=== PATIENT | female | born 1955 | race Caucasian/White ===

== ENCOUNTER 2017-04-14 18:07 | Emergency (ER) | payer OTHER ==
[~2017-04-14] VITALS: Ht 165.1 cm; Wt 80.0 kg
[~2017-04-14 18:07] MED LIST: FLUO10CA5 PO; NAPR550T3 PO
[2017-04-14 18:08] VITALS: BP 126/62; PULSE 80; RESP 20; TEMP 98.5; O2SAT 98
[2017-04-14] MEDS ORDERED: FLUO10TA PO (18:36)
[2017-04-14 19:20] LABS: BLOOD, URINE SMALL (NEG); COMMENT (UR) CULTURE INDICATED; CULTURE IF INDICATED CULTURE INDICATED; GLUCOSE,URINE NEG (NEG); HYALINE CAST, URINE 2 /lpf (RARE); KETONE, URINE NEG (NEG); MUCUS URINE MOD /lpf (OCC); NITRITE,URINE NEG (NEG); PH, URINE 5.5 (5.0-8.5); SQUAMOUS EPITHELIAL CELL URINE 3 /hpf (0-5); URINE COLOR YELLOW (YELLW/STRAW)
[2017-04-14] MEDS ORDERED: AZITHROMYCIN PWD FOR SUSP 1 GM PACKET PO ONE ×2 (19:30)
[2017-04-14] MEDS ORDERED: DOXY100C PO (19:31)
--- NOTE | 2017-04-14 19:38 | PD ---
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 SHe has had this for 3 days. Pain in pelvic area. Has been putting monistat with no relief. No chest pain. No fevers. Recent sexual intercourse with boyfriend. Pain is 8/10. No previous STD. No back pain. Urinary or BM issues. PFSH Past Medical History Autoimmune Disease: No Anxiety: Yes Depression: Yes Cancer: No Cardiovascular Problems: No Diminished Hearing: No Endocrine: No Genitourinary: No Immune Disorder: No Musculoskeletal: No Neurologic: No Psychiatric: Yes (DEPRESSED FOR 1 YR) Reproductive: No Respiratory: No Immunizations Current: Yes ?: Not Menopausal: Yes : 1 Para: 1 Past Surgical History Abdominal Surgery: No Cardiac Surgery: No Ear Surgery: No Endocrine Surgery: No Eye Surgery: No Genitourinary Surgery: No Gynecologic Surgery: Yes (HYSTERCTOMY IN THE 'S) Hysterectomy: Yes Oral Surgery: No Thoracic Surgery: No Social History Alcohol Use: No Tobacco Use: No Substance Use: Yes (marijuana) Allergies-Medications (Allergen,Severity, Reaction): Coded Allergies: Penicillin (Verified Allergy, Mild, Anaphylaxis, 09/15/16) Reported Meds & Prescriptions Reported Meds & Active Scripts Active Doxycycline Hyclate 100 Mg Cap 100 Mg PO BID 10 Days Reported Fluoxetine (Fluoxetine HCl) 10 Mg Tab 10 Mg PO DAILY Review of Systems Except as stated in HPI: all other systems reviewed are Neg Physical Exam Narrative GENERAL: SKIN: Warm and dry. HEAD: Atraumatic. Normocephalic. EYES: Pupils equal and round. No scleral icterus. No injection or drainage. ENT: No nasal bleeding or discharge. Mucous membranes pink and moist. Tongue is midline. No uvula deviation. NECK: Trachea midline. No JVD. CARDIOVASCULAR: Regular rate and rhythm. No murmurs, S3, S4. RESPIRATORY: No accessory muscle use. Clear to auscultation. Breath sounds equal bilaterally. GASTROINTESTINAL: Abdomen soft, non-tender, nondistended. Hepatic and splenic margins not palpable. Pelvic exam: seen with female nurse present, has green discharge. No cervical motion tenderness. No lymphadenopathy. No masses. MUSCULOSKELETAL: Extremities without clubbing, cyanosis, or edema. No obvious deformities. NEUROLOGICAL: Awake and alert. No obvious cranial nerve deficits. Motor grossly within normal limits. Five out of 5 muscle strength in the arms and legs. Normal speech. PSYCHIATRIC: Appropriate mood and affect; insight and judgment normal. Data Data Last Documented VS Vital Signs Date Time Temp Pulse Resp B/P Pulse Ox O2 Delivery O2 Flow Rate FiO2 04/14/17 18:08 98.5 80 20 126/62 98 Room Air Orders Gc And Chlamydia Pcr (04/14/17 18:38) Wet Prep Profile (04/14/17 18:38) Urinalysis - C+S If Indicated (04/14/17 18:38) Azithromycin Powd Pack (Zithromax Powd P (04/14/17 19:30) Azithromycin Powd Pack (Zithromax Powd P (04/14/17 19:30) Labs Laboratory Tests Test 04/14/17 18:40 Clue Cells (Wet Prep) NONE SEEN Vaginal Trichomonas (Wet Prep) NONE SEEN Vaginal Yeast (Wet Prep) NONE SEEN MDM Medical Decision Making Medical Screen Exam Complete: Yes Emergency Medical Condition: Yes Medical Record Reviewed: Yes Interpretation(s) wet prep negative Differential Diagnosis STD versus vaginal discharge versus vaginal infection versus pelvic pain Narrative Course 61-year-old female that presents to the ED for evaluation of vaginal discharge and pain. Patient was properly examined and was found to have signs and symptoms consistent appears to be pelvic pain and discharge. Likely STD. Worker was negative. Patient was told that unfortunately she likely has an STD. Patient will be treated for this with azithromycin 2 g as well as doxycycline. Patient unfortunately is allergic to Enisyl with anaphylactic reaction and she's never had any cephalosporins before. Concerning for severe reaction with ceftriaxone therefore that is why doxycycline was given. She was told to follow with PCP. See ED worsening symptoms. This was discussed in my attending Dr Singh who is in agreement with plan. Diagnosis Primary Impression: Vaginitis Qualified Code: N76.0 - Acute vaginitis Patient Instructions: General Instructions Additional Instructions: Take med as prescribed. F/u with PCP. No sex for two weeks. See ED if worst. F/u with heatl[facility] department Med/Other Pt SpecificInfo: Prescription(s) given Scripts Doxycycline Hyclate 100 Mg [id number] Mg PO BID 10 Days Ref 0 Prov:Juancho Singh MD 04/14/17 Disposition: 01 DISCHARGE HOME Condition: Stable Adelfo Hernandez Apr 14, 2017 19:38
[2017-04-14 21:41] LABS: CHLAMYDIA PCR NOT DETECTED (NOT DETECT); NEISSERIA PCR DETECTED (NOT DETECT)
== END 2017-04-14 21:12 | disposition home or self-care (01) ==
LOC: NEPD 18:07
DX: N76.0 Acute vaginitis (principal); N39.0 Urinary tract infection, site not specified; B95.1 Streptococcus, group B, as the cause of diseases classified elsewhere
CPT/HCPCS: 81001; 86403; 87086; 87210; 87491; 87591; 99283

== ENCOUNTER 2017-06-22 19:23 | Emergency (ER) | payer OTHER ==
[~2017-06-22] VITALS: Ht 165.1 cm; Wt 77.0 kg
[~2017-06-22 19:23] MED LIST changes: +DOXY100C PO; -FLUO10CA5 PO; +FLUO10TA PO; -NAPR550T3 PO
[2017-06-22 19:26] VITALS: BP 128/78; PULSE 74; RESP 15; TEMP 98.8; O2SAT 99
--- NOTE | 2017-06-22 19:37 | PD ---
Physical Exam Date Seen by Provider: Jun 22, 2017 Time Seen by Provider: 19:36 Narrative 61 YOWF C/O MRSA INFECTION LLE TATTOO. ALREADY ON BACTRIUM BY PMD. TATTOO 3 WEEKS AGO INFECTION X 2WEEKS. NO F/C VS REVIEWED WAITING FOR BED PLACEMENT Data Data Last Documented VS Vital Signs Date Time Temp Pulse Resp B/P Pulse Ox O2 Delivery O2 Flow Rate FiO2 06/22/17 19:26 98.8 74 15 128/78 99 Room Air MDM Supervised Visit with VICENTA: Brent Benavides Jun 22, 2017 19:37
[2017-06-22] MEDS ORDERED: BACT800T5 PO (21:14)
[2017-06-22] MEDS ORDERED: MUPI2%T TOPICAL (21:14)
[2017-06-22] MEDS ORDERED: DOXY100C PO (21:14)
--- NOTE | 2017-06-22 21:21 | PD ---
HPI Chief Complaint: Skin Problem Time Seen by Provider: 21:08 Travel History International Travel<30 days: No Contact w/Intl Traveler<30days: No Traveled to known affect area: No History of Present Illness HPI 61-year-old female presents for evaluation of left lower leg tattoo infection. She reports that she received a new tattoo on her left lower leg 3 weeks ago. 2 weeks ago she developed an infection. She was seen at the [facility] and started on a seven-day course of Bactrim which she finished almost a week ago. The symptoms initially were improving well on Bactrim but over the past few days and got worse again which prompted evaluation. She denies any fevers or chills. She was told by the DC that the wound culture grew out MRSA. She has no other complaints at this time. [facility] Past Medical History Autoimmune Disease: No Anxiety: Yes Depression: Yes Cancer: No Cardiovascular Problems: No Diminished Hearing: No Endocrine: No Genitourinary: No Immune Disorder: No Musculoskeletal: No Neurologic: No Psychiatric: Yes (DEPRESSED FOR 1 YR) Reproductive: No Respiratory: No Immunizations Current: Yes Tetanus Vaccination: < 5 Years Influenza Vaccination: Yes ?: Not Menopausal: Yes : 1 Para: 1 Past Surgical History Abdominal Surgery: No Cardiac Surgery: No Ear Surgery: No Endocrine Surgery: No Eye Surgery: No Genitourinary Surgery: No Gynecologic Surgery: Yes (HYSTERCTOMY IN THE 'S) Hysterectomy: Yes Oral Surgery: No Thoracic Surgery: No Social History Alcohol Use: No Tobacco Use: No Substance Use: Yes (marijuana) Allergies-Medications (Allergen,Severity, Reaction): Coded Allergies: penicillin G (Unverified Allergy, Mild, Anaphylaxis, 06/22/17) Reported Meds & Prescriptions Reported Meds & Active Scripts Active Bactroban Topical (Mupirocin) 22 Gm Cream 1 Applic TOPICAL BID 14 Days Bactrim DS (Sulfamethoxazole-Trimethoprim) 800-160 Mg Tab 1 Tab PO BID Doxycycline Hyclate 100 Mg Cap 100 Mg PO BID Doxycycline Hyclate 100 Mg Cap 100 Mg PO BID 10 Days Reported Fluoxetine (Fluoxetine HCl) 10 Mg Tab 10 Mg PO DAILY Review of Systems Except as stated in HPI: all other systems reviewed are Neg Physical Exam Narrative GENERAL: Well-developed well-nourished female in no acute distress SKIN: Warm and dry. Tattoo noted to the left lower leg. There is some centralized mild erythema, skin ulceration and honey-colored crusting. There is no induration, fluctuance. HEAD: Atraumatic. Normocephalic. EYES: Pupils equal and round. No scleral icterus. No injection or drainage. ENT: No nasal bleeding or discharge. Mucous membranes pink and moist. NECK: Trachea midline. No JVD. CARDIOVASCULAR: Regular rate and rhythm. No murmur appreciated. RESPIRATORY: No accessory muscle use. Clear to auscultation. Breath sounds equal bilaterally. GASTROINTESTINAL: Abdomen soft, non-tender, nondistended. Hepatic and splenic margins not palpable. MUSCULOSKELETAL: No obvious deformities. Skin as noted above with no edema. NEUROLOGICAL: Awake and alert. No obvious cranial nerve deficits. Motor grossly within normal limits. Normal speech. Data Data Last Documented VS Vital Signs Date Time Temp Pulse Resp B/P Pulse Ox O2 Delivery O2 Flow Rate FiO2 06/22/17 19:26 98.8 74 15 128/78 99 Room Air Orders Sulfamet-Trimeth Ds 800-160 Mg (Bactrim (06/22/17 21:30) Doxycycline (Vibratab) (06/22/17 21:30) Wound Culture And Gram Stain (06/22/17 21:16) MDM Medical Decision Making Medical Screen Exam Complete: Yes Emergency Medical Condition: Yes Medical Record Reviewed: Yes Differential Diagnosis Tattoo infection, cellulitis, impetigo, abscess, dye allergy Narrative Course Physical examination reveals mild cellulitic changes and impetigo to the left lower extremity tattoo. She reports that a wound culture was performed at the DC 2 weeks ago and it has grown out MRSA. She does not have the sensitivity report with her. The plan therefore will be to discharge the patient with Bactrim, doxycycline as well as Bactroban cream. Recommend outpatient follow- up with the DC and return for worsening symptoms. Diagnosis Primary Impression: Cellulitis of left leg Additional Impression: Impetigo Additional Instructions: Medication as prescribed. Wash with warm soap and water 2-3 times a day. [facility] Return for any acutely new or worsening symptoms. Med/Other Pt SpecificInfo: Prescription(s) given Scripts Mupirocin Topical (Bactroban Topical)22 Gm Cream1 Applic TOPICAL BID 14 Days Ref 0 Prov:Mikhail Barrow MD 06/22/17 Sulfamethoxazole-Trimethoprim (Bactrim DS)800-160 Mg Tab1 Tab PO BID #20 TAB Ref 0 Prov:Mikhail Barrow MD 06/22/17 Doxycycline Hyclate 100 Mg [id number] Mg PO BID #20 CAP Ref 0 Prov:Mikhail Barrow MD 06/22/17 Disposition: 01 DISCHARGE HOME Condition: Stable Hair Lam Jun 22, 2017 21:21
[2017-06-22] MEDS ORDERED: DOXYCYCLINE HYCLATE 100 MG TAB PO ONE (21:30)
[2017-06-22] MEDS ORDERED: SULFAMETHOXAZOLE-TRIMETHOPRIM DS 800-160 MG TAB PO ONE (21:30)
== END 2017-06-22 21:35 | disposition home or self-care (01) ==
LOC: NEPK 19:23
DX: L03.116 Cellulitis of left lower limb (principal); L01.00 Impetigo, unspecified; F32.9 Major depressive disorder, single episode, unspecified
CPT/HCPCS: 86403; 87070; 87205; 99284

== ENCOUNTER 2017-08-09 09:35 | Emergency (ER) | payer OTHER ==
[~2017-08-09] VITALS: Ht 165.1 cm; Wt 76.0 kg
[~2017-08-09 09:35] MED LIST changes: +BACT800T5 PO; +MUPI2%T TOPICAL
[2017-08-09 09:36] VITALS: BP 166/88; PULSE 76; RESP 18; TEMP 98.5; O2SAT 97
--- NOTE | 2017-08-09 09:55 | PD ---
HPI Chief Complaint: Back/ Neck Pain or Injury Time Seen by Provider: 09:53 Travel History International Travel<30 days: No Contact w/Intl Traveler<30days: No Traveled to known affect area: No History of Present Illness HPI 62-year-old female presents to the emergency Department with complaint of right- sided low back pain that radiates down her right leg 3 days. Reports history of low back pain and similar symptoms. Denies injury or heavy lifting. Denies fever, vomiting, abdominal pain. Denies dysuria, urgency, frequency. Denies incontinence, encopresis, saddle anesthesias. Denies IV drug use or cancer. Denies paresthesias, loss of sensation, decreased range of motion, motor strength to bilateral lower extremity is. Reports being ambulatory with a limp to her right lower extremity. Has not taken any medications or tried any treatments to alleviate her symptoms. Symptoms are moderate in severity. Symptoms are worse with ambulation and palpation. [facility] Allergies to penicillin. Has no other medical complaints. No other modifying factors or associated signs and symptoms. PFSH Past Medical History Autoimmune Disease: No Anxiety: Yes Depression: Yes Cancer: No Cardiovascular Problems: No Diminished Hearing: No Endocrine: No Genitourinary: No Immune Disorder: No Musculoskeletal: No Neurologic: No Psychiatric: Yes (DEPRESSED FOR 1 YR) Reproductive: No Respiratory: No Immunizations Current: Yes Menopausal: Yes : 1 Para: 1 Past Surgical History Abdominal Surgery: No Cardiac Surgery: No Ear Surgery: No Endocrine Surgery: No Eye Surgery: No Genitourinary Surgery: No Gynecologic Surgery: Yes (HYSTERCTOMY IN THE 'S) Hysterectomy: Yes Oral Surgery: No Thoracic Surgery: No Social History Alcohol Use: No Tobacco Use: No Substance Use: Yes (marijuana) Allergies-Medications (Allergen,Severity, Reaction): Coded Allergies: penicillin G (Unverified Allergy, Mild, Anaphylaxis, 08/09/17) Reported Meds & Prescriptions Reported Meds & Active Scripts Active Medrol Dosepak (Methylprednisolone) 4 Mg Dspk 4 Mg PO DIRECTED Per Pharmacist direction Robaxin (Methocarbamol) 500 Mg Tab 500 Mg PO QID Ibuprofen 800 Mg Tab 800 Mg PO Q6HR PRN Bactroban Topical (Mupirocin) 22 Gm Cream 1 Applic TOPICAL BID 14 Days Bactrim DS (Sulfamethoxazole-Trimethoprim) 800-160 Mg Tab 1 Tab PO BID Doxycycline Hyclate 100 Mg Cap 100 Mg PO BID Doxycycline Hyclate 100 Mg Cap 100 Mg PO BID 10 Days Reported Fluoxetine (Fluoxetine HCl) 10 Mg Tab 10 Mg PO DAILY Review of Systems Except as stated in HPI: all other systems reviewed are Neg Physical Exam Narrative GENERAL: Well-nourished, well-developed female patient, in no acute distress; afebrile, nontoxic-appearing SKIN: Warm and dry. HEAD: Atraumatic. Normocephalic. EYES: Pupils equal and round. No scleral icterus. No injection or drainage. ENT: Mucosa pink and moist. Airway patent. NECK: Trachea midline. CARDIOVASCULAR: Regular rate. RESPIRATORY: No accessory muscle use. GASTROINTESTINAL: Abdomen soft, non-tender, nondistended. Positive bowel sounds. No hepato-splenomegaly, or palpable masses. No guarding. MUSCULOSKELETAL: Bilateral lower extremities supple and non-tense with 2+ pedal pulses and sensory intact; with full range of motion and 5/5 strength. 2 + DTRs bilaterally. Active dorsiflexion and extension of bilateral feet. Right straight leg raise is positive for low back pain. Ambulatory in room with a limp to the right lower extremity. Sitting up in bed at 90. No obvious deformities. No clubbing. No cyanosis. No edema. BACK: No midline point tenderness on palpation of the lumbar spine. Tenderness on palpation of right lumbar iliosacral area. No obvious deformities. NEUROLOGICAL: Awake and alert. Oriented 3. No obvious cranial nerve deficits. Motor grossly within normal limits. Normal speech. Moves all extremities. 5/5 strength to all extremities. Sensory intact. PSYCHIATRIC: Appropriate mood and affect; insight and judgment normal. Data Data Last Documented VS Vital Signs Date Time Temp Pulse Resp B/P (MAP) Pulse Ox O2 Delivery O2 Flow Rate FiO2 08/09/17 09:36 98.5 76 18 166/88 (114) 97 Room Air Orders Orders Ketorolac Inj (Toradol Inj) (08/09/17 10:00) Orphenadrine Inj (Norflex Inj) (08/09/17 10:00) MDM Medical Decision Making Medical Screen Exam Complete: Yes Emergency Medical Condition: Yes Medical Record Reviewed: Yes Differential Diagnosis Acute exacerbation of chronic low back pain, acute low back pain, sciatica, lumbar radiculopathy Narrative Course 62-year-old female physical exam consistent with right-sided low back pain with sciatica. History of low back pain and sciatica. Denies new or recent injury. Denies encopresis, incontinence, saddle anesthesias. Denies IV drug use or cancer. Patient is afebrile and nontoxic-appearing. Denies fever, vomiting. No midline tenderness on palpation of the lumbar spine. Patient is ambulatory in the room with a limp to the right lower extremity. I do not feel that imaging is necessary at this time. Toradol and Norflex administered in the ER. Ibuprofen, Robaxin, Medrol Dosepak prescribed for home. Instructed patient to follow up with primary care provider. Patient verbalizes understanding and agreement with treatment plan. Patient is medically cleared and stable for discharge. Discussed reasons to return to the emergency department. Patient agrees with treatment plan. The patients vital signs are stable and the patient is stable for outpatient follow-up and treatment. Patient discharged home, stable and in no acute distress. Diagnosis Primary Impression: Right-sided low back pain with sciatica Qualified Codes: M54.41 - Lumbago with sciatica, right side Referrals: Primary Care Physician Patient Instructions: Acute Low Back Pain (ED), General Instructions, Sciatica (ED) Departure Forms: Tests/Procedures, Work Release Enter return to work date: Aug 14, 2017 Additional Instructions: Tylenol or ibuprofen as directed and as needed for pain Robaxin as prescribed and as needed for muscle spasms Heating pad and/or ice to affected area to reduce pain Avoid aggravating activities; increase activity as tolerated Follow-up with primary care provider Return to emergency department immediately with worsening of symptoms Med/Other Pt SpecificInfo: Prescription(s) given Scripts Methylprednisolone Dosepak (Medrol Dosepak) 4 Mg Dspk 4 MG PO DIRECTED, #1 DSPK 0 Refills Per Pharmacist direction Prov: Chelsey Henderson 08/09/17 Methocarbamol (Robaxin) 500 Mg Tab 500 MG PO QID for Muscle Spasm, #30 TAB 0 Refills Prov: Chelsey Henderson 08/09/17 Ibuprofen (Ibuprofen) 800 Mg Tab 800 MG PO Q6HR Y for PAIN, #30 TAB 0 Refills Prov: Chelsey Henderson 08/09/17 Disposition: 01 DISCHARGE HOME Condition: Stable Chelsey Henderson Aug 09, 2017 09:55
[2017-08-09] MEDS ORDERED: IBUP800T23 PO (09:56)
[2017-08-09] MEDS ORDERED: MEDR4PAK PO (09:56)
[2017-08-09] MEDS ORDERED: ROBA500T PO (09:56)
[2017-08-09] MEDS ORDERED: KETOROLAC TROMETHAMINE 60 MG/2 ML (IM) VIAL IM ONE (10:00)
[2017-08-09] MEDS ORDERED: ORPHENADRINE INJ 60 MG/2 ML AMP IM ONE (10:00)
== END 2017-08-09 10:21 | disposition home or self-care (01) ==
LOC: NEPK 09:35
DX: M54.41 Lumbago with sciatica, right side (principal); Z86.59 Personal history of other mental and behavioral disorders
CPT/HCPCS: 96372; 99284; J1885; J2360